=== PATIENT | male | born 1970 | race Caucasian/White ===

== ENCOUNTER 2022-04-13 22:29 | Emergency (ER) | payer BC, OTHER ==
[2022-04-13] MEDS ORDERED: Lidocaine 1% 10 ML MDV INJECT ONE (23:30)
[2022-04-13] MEDS ORDERED: Bupivacaine 0.5%/EPINEPHrine 1:200,000 30 ML SDV INJECT ONE (23:30)
[2022-04-13] MEDS ORDERED: Penicillin V Potassium 500 MG Tab PO STA (23:31)
[2022-04-14] MEDS ORDERED: Bupivacaine 0.5%/EPINEPHrine 1:200,000 30 ML SDV INJECT ONE (00:11)
== END 2022-04-14 00:15 | disposition home or self-care (01) ==
LOC: JD.ED 22:29
DX: K08.89 Other specified disorders of teeth and supporting structures (principal); E66.9 Obesity, unspecified; Z68.33 Body mass index [BMI] 33.0-33.9, adult; Z79.899 Other long term (current) drug therapy; Z90.49 Acquired absence of other specified parts of digestive tract
CPT/HCPCS: 64400; 99282; A9270; J3490